=== PATIENT | male | born 1960 | race Hispanic/Latino ===

== ENCOUNTER 2023-06-14 21:41 | Emergency (ER) | payer OTHER ==
--- NOTE | 2023-06-14 22:36 | RAD REPORT ---
EXAM DESCRIPTION: RAD - Chest Single View - 06/14/2023 10:31 pm CLINICAL HISTORY: HTN COMPARISON: No comparisons FINDINGS: Lines: None. Lungs: No evidence of edema or pneumonia. Pleural: No significant pleural effusions or pneumothorax. Cardiac: The heart size is within normal limits. Mediastinum: Within normal limits. Bones: No acute fractures. Other: None IMPRESSION: No acute cardiopulmonary disease.
[2023-06-14 23:26] LABS: Absolute Lymphocytes (CBC) 2.7 K/uL (0.7-4.9); Hematocrit 40.1 % (39.6-49.0); Lymphocytes % 44.1 % (15.3-44.8); MCV 89.9 fL (80-100); MPV 8.1 fL (7.6-11.3); Platelets 219 thou/uL (152-406); RBC Red Blood Cell Count 4.46 M/uL (4.33-5.43)
[2023-06-14 23:35] LABS: Albumin 3.9 g/dL (3.4-5.0); Bilirubin Direct 0.1 mg/dL (0-0.2); Bilirubin Indirect, Calculated 0.3 mg/dL (0.2-0.8); Bilirubin Total 0.4 mg/dL (0.2-1.0); Magnesium 1.9 mg/dL (1.6-2.4); Potassium 3.7 mEq/L (3.5-5.1); Protein, Total 7.2 g/dL (6.4-8.2); Troponin High Sensitivity 17.9 pg/mL (<58.9)
--- NOTE | 2023-06-15 00:23 | EDPHYS ---
Physician Documentation [facility] Name: Jim Dailey Age: 63 yrs Sex: Male : 1960 Arrival Date: 06/14/2023 Time: 21:41 Bed 8 Private MD: ED Physician Patrick Triana HPI: 06/14 22:07 This 63 yrs old Male presents to ER via Ambulatory with complaints of High ms3 Blood Pressure. 22:07 63-year-old male with no past medical history presents the emergency department for ms3 left-sided chest discomfort that began 4 days ago. Patient states prior to coming to the emergency department he went to [facility] to check his blood pressure and noted his systolic blood pressure to be 151. Patient states he checked his pressure 2-3 times and each reading was higher. Patient states his pain is a 2/10, located on the left chest, and does not radiate. Patient denies any alleviating or inciting factors. Historical: - Allergies: 22:07 No Known Allergies; ap3 - Home Meds: 22:07 None [Active]; ap3 - PMHx: 22:07 None; ap3 - Immunization history:: Client reports having NOT received the Covid vaccine. - Social history:: Smoking status: Patient denies any tobacco usage or history of. ROS: 22:07 Constitutional: Negative for fever, and chills. ms3 22:07 Respiratory: Negative for shortness of breath, cough, wheezing, and pleuritic chest pain, Abdomen/GI: Negative for abdominal pain, nausea, vomiting, diarrhea, and constipation, MS/Extremity: Negative for injury and deformity, Skin: Negative for injury, rash, and discoloration, 22:07 Cardiovascular: Positive for chest pain, 22:07 All other systems are negative, Exam: 22:07 Constitutional: This is a well developed, well nourished patient who is awake, alert, ms3 and in no acute distress. Head/Face: Normocephalic, atraumatic. Chest/axilla: Normal chest wall appearance and motion. Nontender with no deformity. Cardiovascular: Regular rate and rhythm with a normal S1 and S2. No gallops, murmurs, or rubs. Normal PMI, no JVD. No pulse deficits. Respiratory: Lungs have equal breath sounds bilaterally, clear to auscultation and percussion. No rales, rhonchi or wheezes noted. No increased work of breathing, no retractions or nasal flaring. Abdomen/GI: Soft, non-tender, with normal bowel sounds. No distension or tympany. No guarding or rebound. No evidence of tenderness throughout. Skin: Warm, dry with normal turgor. Normal color with no rashes, no lesions, and no evidence of cellulitis. 06/15 00:43 ECG was reviewed by the Attending Physician. ms3 Vital Signs: 06/14 21:59 BP 155 / 88; Pulse 66; Resp 18; Temp 98.5; Pulse Ox 100% ; Weight 76.2 kg; ap3 22:52 BP 155 / 80; Pulse 64; Resp 16; Pulse Ox 98% on R/A; Pain 2/10; la4 06/15 00:12 BP 135 / 96; Pulse 73; Resp 15; Pulse Ox 97% ; nw1 00:28 BP 130 / 82; Pulse 65; Resp 18; Pulse Ox 98% on R/A; Pain 0/10; la4 22:52 Pain Scale: Adult la4 00:28 Pain Scale: Adult la4 [place] Coma Score: 06/14 22:52 Eye Response: spontaneous(4). Motor Response: obeys commands(6). Verbal Response: la4 oriented(5). Total: 15. 06/15 00:28 Eye Response: spontaneous(4). Motor Response: obeys commands(6). Verbal Response: la4 oriented(5). Total: 15. MDM: 06/14 22:07 Patient medically screened. ms3 22:09 Differential diagnosis: abnormal EKG, acute myocardial infarction, coronary artery ms3 disease chest wall pain. 06/15 00:20 HEART Score: History: Slightly Suspicious (0), ECG: Normal (0), Age: > or = 65 years ms3 (2), Risk Factors: No Risk Factors Known (0), Troponin: < or = 1 x Normal Limit (0), Total Score = 2. Data reviewed: vital signs, nurses notes, lab test result(s), EKG, radiologic studies, and as a result, I will discharge patient. Consideration of Admission/Observation Escalation of care including admission/observation considered. HEART score 2. Independent interpretation of the following test(s) in the Emergency Department EKG: See my EKG interpretation above X-Ray: My interpretation is CXR image reviewed by me does not reveal pulmonary edema. Counseling: I had a detailed discussion with the patient and/or guardian regarding the historical points, exam findings, and any diagnostic results supporting the discharge/admit diagnosis, lab results, radiology results, the need for outpatient follow up, to return to the emergency department if symptoms worsen or persist or if there are any questions or concerns that arise at home. Special discussion: Based on the patient's history, exam, and Dx evaluation, there is no indication for emergent intervention or inpatient Tx. It is understood by the patient/guardian that if the Sx's persist or worsen they need to return immediately for re-evaluation. ED course: Discussed labs, EKG, chest x-ray findings with patient. Patient to follow-up with Dr. Loving in 1 to 2 days. Patient understands and agrees with plan. All questions were answered. Return precautions discussed include worsening symptoms, or any other concerns. On reevaluation patient is alert and oriented x4, no apparent distress, nontoxic-appearing, ambulatory number department, speaking full sentences. 06/14 23:08 Order name: Basic Metabolic Panel; Complete Time: 00:08 EDMS 06/14 23:08 Order name: Liver (Hepatic) Function; Complete Time: 00:08 EDMS 06/14 23:08 Order name: Troponin High Sensitivity; Complete Time: 00:08 EDMS 06/14 23:08 Order name: Magnesium; Complete Time: 00:08 EDMS 06/14 23:08 Order name: CBC with Automated Diff; Complete Time: 00:08 EDMS 06/14 22:16 Order name: Chest Single View; Complete Time: 00:08 EDMS 06/14 22:07 Order name: Cardiac monitoring; Complete Time: 22:27 ms3 06/14 22: Order name: EKG - Nurse/Tech; Complete Time: 22:46 ms3 06/14 22: Order name: IV Saline Lock; Complete Time: 22:27 ms3 06/14 22: Order name: Labs collected and sent; Complete Time: 22:27 ms3 06/14 22:07 Order name: O2 Per Protocol; Complete Time: 22:27 ms3 06/14 22: Order name: O2 Sat Monitoring; Complete Time: 22:27 ms3 EC:43 Rate is 59 beats/min. Rhythm is regular. QRS [place] is Normal. [place] interval is normal. QRS ms3 interval is normal. Clinical impression: Sinus bradycardia. Interpreted by me. Reviewed by me. Administered Medications: No medications were administered Disposition Summary: 06/15/23 00:22 Discharge Ordered Notes: Location: Home ms3 Condition: Stable ms3 Diagnosis - Chest pain, unspecified ms3 - Elevated blood-pressure reading, without diagnosis of hypertension ms3 Followup: ms3 - With: Mario Loving MD - When: 1 - 2 days - Reason: Recheck today's complaints Discharge Instructions: - Discharge Summary Sheet ms3 - Nonspecific Chest Pain, Adult ms3 - DASH Eating Plan ms3 Forms: - Medication Reconciliation Form ms3 - Thank You Letter ms3 - Antibiotic Education ms3 - Prescription Opioid Use ms3 - Patient Portal Instructions ms3 - Leadership Thank You Letter ms3 Signatures: Dispatcher [employer] Kiersten Feliciano RN RN ap3 Patrick Triana DO DO ms3
--- NOTE | 2023-06-15 00:23 | ER ---
Nurse's Notes [facility] Name: Jim Dailey Age: 63 yrs Sex: Male : 1960 Arrival Date: 06/14/2023 Time: 21:41 Bed 8 Private MD: Diagnosis: Chest pain, unspecified;Elevated blood-pressure reading, without diagnosis of hypertension Presentation: 06/14 21:59 Chief complaint: Patient states: he went to [facility] to check his blood pressure. patient ap3 states his blood pressure "was normal the first few times but then got higher". patient also reports mild left upper chest discomfort. Coronavirus screen: At this time, the client does not indicate any symptoms associated with coronavirus-19. Ebola Screen: No symptoms or risks identified at this time. Initial Sepsis Screen: Does the patient meet any 2 criteria? No. Patient's initial sepsis screen is negative. Does the patient have a suspected source of infection? No. Patient's initial sepsis screen is negative. Risk Assessment: Do you want to hurt yourself or someone else? Patient reports no desire to harm self or others. Onset of symptoms is unknown. 21:59 Method Of Arrival: Ambulatory ap3 21:59 Acuity: [place]LA[place] 3 ap3 Triage Assessment: 22:08 General: Appears in no apparent distress. Behavior is calm, cooperative, appropriate ap3 for age. Pain: Complains of pain in anterior aspect of left upper chest and left breast. Neuro: Level of Consciousness is awake, alert, obeys commands, Oriented to person, place, time, situation. Cardiovascular: Patient's skin is warm and dry. Respiratory: Airway is patent Respiratory effort is even, unlabored, Respiratory pattern is regular, symmetrical. Historical: - Allergies: 22:07 No Known Allergies; ap3 - Home Meds: 22:07 None [Active]; ap3 - PMHx: 22:07 None; ap3 - Immunization history:: Client reports having NOT received the Covid vaccine. - Social history:: Smoking status: Patient denies any tobacco usage or history of. Screenin:08 [facility] ED Fall Risk Assessment (Adult) History of falling in the last 3 months, ap3 including since admission No falls in past 3 months (0 pts). Abuse screen: Denies threats or abuse. Nutritional screening: No deficits noted. Tuberculosis screening: No symptoms or risk factors identified. Assessment: 22:49 General: Appears in no apparent distress. Behavior is calm, cooperative, appropriate la4 for age. Pain: Denies pain. Complains of pain in anterior aspect of left upper chest Pain does not radiate. Pain currently is 2 out of 10 on a pain scale. Quality of pain is described as aching. Neuro: No deficits noted. [place] Agitation-Sedation Scale (RASS): 0 - Alert and Calm. Cardiovascular: No deficits noted. Reports chest pain, elevated BP Denies fatigue, nausea, shortness of breath, syncope, vomiting, Heart tones S1 S2 Capillary refill < 3 seconds is brisk in bilateral fingers JVD is absent Patient's skin is warm and dry. Respiratory: No deficits noted. Breath sounds are clear bilaterally. GI: No deficits noted. : No deficits noted. 23:16 Reassessment: Pt noted sitting upright in bed. Requested something to drink. Notified nw1 patient that we must wait until lab work comes back. Pt verbalized understanding. 0 s/s of acute distress noted. Call light at bedside. Will continue to monitor. Vital Signs: 21:59 BP 155 / 88; Pulse 66; Resp 18; Temp 98.5; Pulse Ox 100% ; Weight 76.2 kg; ap3 22:52 BP 155 / 80; Pulse 64; Resp 16; Pulse Ox 98% on R/A; Pain 2/10; la4 06/15 00:12 BP 135 / 96; Pulse 73; Resp 15; Pulse Ox 97% ; nw1 00:28 BP 130 / 82; Pulse 65; Resp 18; Pulse Ox 98% on R/A; Pain 0/10; la4 22:52 Pain Scale: Adult la4 00:28 Pain Scale: Adult la4 Vitals: 06/14 22:52 Cardiac Rhythm Assessment Regular Sinus rhythm. la4 [place] Coma Score: 22:52 Eye Response: spontaneous(4). Motor Response: obeys commands(6). Verbal Response: la4 oriented(5). Total: 15. 06/15 00:28 Eye Response: spontaneous(4). Motor Response: obeys commands(6). Verbal Response: la4 oriented(5). Total: 15. ED Course: 06/14 21:46 Patient arrived in ED. mr 21:52 Patrick Triana DO is Attending Physician. ms3 22:07 Triage completed. ap3 22:08 Radha Betancourt, RN is Primary Nurse. la4 22:08 Arm band placed on right wrist. 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 Pulse ox on. NIBP on. ap3 22:08 Patient has correct armband on for positive identification. Placed in gown. Bed in low la4 position. Side rails up X2. 22:08 Provided Education on: discharge instructions and follow up . la4 22:31 Chest Single View Sent. la4 22:32 Chest Single View In Process Unspecified. EDMS 06/15 00:22 Mario Loving MD is Referral Physician. ms3 00:29 intact, bleeding controlled, No redness/swelling at site. Pressure dressing applied. la4 00:29 No provider procedures requiring assistance completed. la4 Administered Medications: No medications were administered Medication: 00:30 VIS not applicable for this client. la4 Outcome: 00:22 Discharge ordered by MD. ms3 00:29 Discharged to home ambulatory, la4 00:29 Condition: stable 00:29 Discharge instructions given to patient, Instructed on discharge instructions, follow up and referral plans. Demonstrated understanding of instructions, follow-up care, 00:50 Patient left the ED. nw1 Signatures: Dispatcher [employer] EDFL Kala Saleem, Reg Reg mr Kiersten Williamson, RN RN ap3 Patrick Triana, DO ms3 Radha Betancourt, Abbi Mariee RN, RN RN nw1
== END 2023-06-15 00:50 | disposition home or self-care (01) ==
LOC: ER 21:41
DX: R07.89 Other chest pain (principal); R03.0 Elevated blood-pressure reading, without diagnosis of hypertension
CPT/HCPCS: 36415; 71045; 80048; 80076; 83735; 84484; 85025